=== PATIENT | female | born 1955 | race Caucasian/White ===

== ENCOUNTER 2018-02-02 09:22 | Outpatient (CLI) | payer OTHER | END 2018-02-02 09:38 | disposition home or self-care (01) | LOC: NUCLEAR 09:22 | DX: M15.8 Other polyosteoarthritis (principal); M46.1 Sacroiliitis, not elsewhere classified | CPT/HCPCS: A9503; 78315; 78306 ==

== ENCOUNTER 2018-03-28 15:23 | Outpatient (CLI) | payer OTHER | END 2018-03-28 15:31 | disposition home or self-care (01) | LOC: RAD 15:23 | DX: M15.8 Other polyosteoarthritis (principal); M25.561 Pain in right knee; M25.562 Pain in left knee ==

== ENCOUNTER 2018-04-02 14:01 | Emergency (ER) | payer OTHER ==
[~2018-04-02] VITALS: Ht 160 cm; Wt 77.1 kg
[2018-04-02] MEDS ORDERED: SYNTHROID50 MCG (14:20)
== END 2018-04-03 20:55 | disposition home or self-care (01) ==
LOC: ER 14:01
DX: S80.01XA Contusion of right knee, initial encounter (principal); W18.39XA Other fall on same level, initial encounter; Y93.89 Activity, other specified; Y92.832 Beach as the place of occurrence of the external cause; Y99.8 Other external cause status

== ENCOUNTER 2018-05-17 11:46 | Outpatient (CLI) | payer OTHER ==
[~2018-05-17 11:46] MED LIST: SYNTHROID50 MCG
== END 2018-05-17 12:06 | disposition home or self-care (01) ==
LOC: NUCLEAR 11:46
DX: M85.88 Other specified disorders of bone density and structure, other site (principal); M81.0 Age-related osteoporosis without current pathological fracture